=== PATIENT | female | born 1950 | race Caucasian/White ===

== ENCOUNTER → 2019-01-08 11:24 | Outpatient (CLI) | payer MEDICARE, OTHER, SELFPAY ==
[2019-01-08 13:40] LABS: TSH w/ Reflex to FT4 3.58 uIU/mL (0.47-4.68)
[2019-01-08 16:10] LABS: Hepatitis B Surface Antigen NEGATIVE s/c (NEGATIVE)
[2019-01-08 16:26] LABS: Hep C Virus Ab w/Reflex Quant NEGATIVE s/c (NEGATIVE)
== END ==
PROVIDERS: PCP Internal Medicine; Visit Provider Family Medicine
DX: R94.5 Abnormal results of liver function studies (principal); R73.01 Impaired fasting glucose; R94.6 Abnormal results of thyroid function studies
CPT/HCPCS: 36415; 83036; 84443; 86803; 87340

== ENCOUNTER → 2019-01-12 13:20 | Outpatient (CLI) | payer MEDICARE, OTHER, SELFPAY ==
--- NOTE | 2019-01-12 | DI.US.S_ITS ---
PROCEDURE: US ABDOMEN LIMITED INDICATIONS: ELEVATED LIVER ENZYMES TECHNIQUE: Real-time scanning was performed of the abdominal and retroperitoneal organs, with image documentation. COMPARISON: None. FINDINGS: Liver is normal in size and demonstrates diffuse increased echotexture consistent with fatty infiltration. There is a focal fat sparing near the gallbladder fossa. Small mobile gallstones are present. No gallbladder wall thickening, pericholecystic fluid or sonographic Haskins's sign. Intrahepatic bile ducts are non-dilated. Extrahepatic bile duct caliber measures 4.7 mm. Normal is 6-7 mm or less in diameter, or 10 mm or less post-cholecystectomy. Visualized portions of the pancreas are sonographically normal. Miscellaneous: No free abdominal fluid. IMPRESSION: 1. Diffusely increased hepatic echotexture. This finding is most likely secondary to hepatic fatty infiltration although other hepatocellular disease may have a similar appearance. Recommend clinical correlation. 2. Cholelithiasis. No ultrasound findings to suggest acute cholecystitis. Dictated by: Frannie Molina M.D. on 01/12/2019 at 15:56 Approved by: Frannie Molina M.D. on 01/12/2019 at 15:58
== END ==
PROVIDERS: PCP Family Medicine; Visit Provider Family Medicine
DX: M85.80 Other specified disorders of bone density and structure, unspecified site (principal); R74.8 Abnormal levels of other serum enzymes; K80.20 Calculus of gallbladder without cholecystitis without obstruction
CPT/HCPCS: 76705

== ENCOUNTER → 2019-01-25 09:32 | Outpatient (CLI) | payer MEDICARE, OTHER, SELFPAY ==
--- NOTE | 2019-01-25 10:55 | DI.CT.S_ITS ---
PROCEDURE: CT ABDOMEN PELVIS WO CON INDICATIONS: UMBILICAL HERNIA TECHNIQUE: After the administration of oral contrast, 5 mm thick sections acquired from the diaphragms to the symphysis. 5 mm coronal and sagittal reformats were performed. For radiation dose reduction, the following was used: automated exposure control, adjustment of mA and/or kV according to patient size. COMPARISON: [facility], , ABDOMEN LIMITED, 01/12/2019, 13:59. FINDINGS: Image quality: Excellent. ABDOMEN: Lung bases: Lung bases are clear except for a calcified granuloma having radiodensity up to 853 Hounsfield units.. Heart size is normal. Solid organs: Liver is normal in size and there is mild fatty infiltration throughout the liver.. Gallbladder contains multiple posterior layering small gallstones but without associated acute cholecystitis or biliary obstruction.. Pancreas is normal in size. Spleen is normal in size. No adrenal nodules. Both kidneys are normal in size, without hydronephrosis or nephrolithiasis. Peritoneum and bowel: Bowel loops demonstrate normal wall thickness and caliber. No free fluid or air. Nodes and vessels: No retroperitoneal or mesenteric adenopathy by size criteria. Aorta and inferior vena cava are normal in size. Miscellaneous: No ventral hernias. PELVIS: Genitourinary: Bladder wall thickness is normal. Miscellaneous: No inguinal hernias or adenopathy. Bones: No suspicious bony lesions. No vertebral body compression fractures. Prior spine surgery extensive through the lower lumbosacral spine. IMPRESSION: An umbilical hernia is not found. A focal peritoneal defect is not identified that would suggest presence of a spontaneously reduced periumbilical hernia at this time. Real-time scanning with Valsalva and without Valsalva maneuver may be warranted targeted to the area of current clinical concern. Calcified granuloma right lung base is small, and definitely contains calcification measuring up to 853 Hounsfield units. Fatty infiltration throughout the liver. No ascites or varices are found. Splenic size appears likely at the upper limits of normal. Multiple small gallstones layer posteriorly within the gallbladder lumen. These are of a size that easily good transit into the cystic duct or common bile duct. Depending on the past clinical history surgical consultation may be warranted Dictated by: Darius Vega M.D. on 01/25/2019 at 17:20 Approved by: Darius Vega M.D. on 01/25/2019 at 17:25
== END ==
PROVIDERS: PCP Family Medicine; Visit Provider Family Medicine
DX: K42.9 Umbilical hernia without obstruction or gangrene (principal); J98.4 Other disorders of lung; K76.0 Fatty (change of) liver, not elsewhere classified; K80.20 Calculus of gallbladder without cholecystitis without obstruction
CPT/HCPCS: 74176